=== PATIENT | female | born 1960 | race Caucasian/White ===

== ENCOUNTER 2022-01-29 13:06 | Observation (INO) ==
[2022-01-29] MEDS ORDERED: Aspirin 325 MG TABLET PO ONE (14:22)
[2022-01-29 15:29] LABS: Basophils # 0.1 K/mcL (0.0-0.2); Eosinophils # 0.1 K/mcL (0.0-0.6); Eosinophils % 0.8 %; Hematocrit 37.6 % (35.3-44.9); Immature Granulocytes % 0.3 % (0-4); Lymphocytes # 1.4 K/mcL (0.6-4.6); Lymphocytes % 22.2 %; Mean Corpuscular HGB Conc 31.9 g/dL (31.6-35.5); Mean Corpuscular Hemoglobin 27.1 pg (28.0-33.3); Mean Corpuscular Volume 84.9 fL (83.0-100.0); Mean Platelet Volume 9.1 fL (9.4-12.4); Monocytes # 0.3 K/mcL (0.0-1.3); Monocytes % 5.5 %; Neutrophils # 4.3 K/mcL (1.6-8.9); Platelet Count 289 K/mcL (140-400); Red Blood Count 4.43 M/mcL (3.82-4.97); Red Cell Distribution Width 13.2 % (11.5-14.5); Segmented Neutrophils % 70.2 %; White Blood Count 6.2 K/mcL (4.3-11.1)
[2022-01-29 15:46] LABS: Calcium 9.4 mg/dL (8.6-10.3); Potassium 3.6 mEq/L (3.5-5.1)
[2022-01-29 15:50] LABS: Troponin I 0.11 ng/mL (< 0.04)
[2022-01-29] MEDS ORDERED: *HR* Heparin 5,000 UNIT/ML VIAL IVP ONE (15:57)
[2022-01-29] MEDS ORDERED: *HR* Heparin 5,000 UNIT/ML VIAL IVP PRN ×2 (15:57)
[2022-01-29] MEDS ORDERED: Nitroglycerin 0.4 MG TAB.SUBL SL PRN (16:15)
[2022-01-29] MEDS ORDERED: Ondansetron 4 MG/2 ML VIAL IVP PRN (16:15)
[2022-01-29] MEDS ORDERED: Morphine Sulfate 2 MG/ML SYRINGE IVP PRN (16:15)
[2022-01-29] MEDS ORDERED: Naloxone 0.4 MG/ML INJ IVP PRN (16:15)
[2022-01-29] MEDS: Heparin 25,000UNIT/250ML 1/2NS 25,000 UNIT/250 ML IV.SOLN IVC SCH (17:13)
[2022-01-29 17:22] LABS: Heparin anti-factor XA UFH 0.04 IU/mL (0.30-0.70)
[2022-01-29 17:23] LABS: Prothrombin Time 10.7 Seconds (9.4-12.1)
[2022-01-30 01:50] LABS: Basophils # 0.1 K/mcL (0.0-0.2); Basophils % 0.8 %; Eosinophils # 0.1 K/mcL (0.0-0.6); Eosinophils % 1.8 %; Hematocrit 35.1 % (35.3-44.9); Hemoglobin 11.4 g/dL (11.5-15.4); Immature Granulocytes % 0.3 % (0-4); Lymphocytes # 2.6 K/mcL (0.6-4.6); Mean Corpuscular HGB Conc 32.5 g/dL (31.6-35.5); Mean Corpuscular Hemoglobin 27.6 pg (28.0-33.3); Mean Platelet Volume 9.6 fL (9.4-12.4); Monocytes # 0.5 K/mcL (0.0-1.3); Monocytes % 6.6 %; Neutrophils # 3.9 K/mcL (1.6-8.9); Platelet Count 277 K/mcL (140-400); Red Blood Count 4.13 M/mcL (3.82-4.97); Red Cell Distribution Width 13.4 % (11.5-14.5); Segmented Neutrophils % 54.5 %; White Blood Count 7.1 K/mcL (4.3-11.1)
[2022-01-30 01:59] LABS: Albumin 3.7 g/dL (3.5-5.7); Albumin/Globulin Ratio 1.5 (1.1-2.2); Bilirubin,Total 0.4 mg/dL (0.3-1.0); Calcium 8.7 mg/dL (8.6-10.3); Globulin 2.5 g/dL (2.4-3.5); Magnesium 1.9 mg/dL (1.6-2.6); Potassium 3.5 mEq/L (3.5-5.1); Total Protein 6.2 g/dL (6.4-8.9)
[2022-01-30 02:08] LABS: Heparin anti-factor XA UFH 0.12 IU/mL (0.30-0.70); Prothrombin Time 11.3 Seconds (9.4-12.1)
[2022-01-30] MEDS: Acetaminophen 325 MG TABLET PO SCH ×2 (10:37→17:11)
[2022-01-30] MEDS: Aspirin 81 MG TAB.CHEW PO SCH (10:38)
[2022-01-30] MEDS ORDERED: Acetaminophen 325 MG TABLET PO SCH ×2 (11:00→12:00)
[2022-01-30] MEDS ORDERED: *HR* Heparin 10,000 UNIT/10 ML VIAL ONE (15:15)
[2022-01-30] MEDS ORDERED: 0.9 % Sodium Chloride 1,000 ML ONE (15:15)
[2022-01-30] MEDS ORDERED: Iopamidol - 370 200 ML INFUS..BTL ONE (15:15)
[2022-01-30] MEDS ORDERED: *HR* FentaNYL (PF) 100 MCG/2 ML VIAL ONE (15:15)
[2022-01-30] MEDS ORDERED: Heparin 1,000 UNITS/500 mL 500 ML ONE (15:15)
[2022-01-30] MEDS ORDERED: *HR* Midazolam HCl 2 MG/2 ML VIAL ONE (15:15)
[2022-01-30] MEDS ORDERED: Nitroglycerin 1,000 MCG/5 ML VIAL IV ONE (15:15)
[2022-01-30] MEDS: Heparin 25,000UNIT/250ML 1/2NS 25,000 UNIT/250 ML IV.SOLN IVC SCH (17:17)
[2022-01-31] MEDS: Acetaminophen 325 MG TABLET PO SCH ×2 (00:53→06:14)
[2022-01-31 06:45] VITALS: TEMP 98.2; O2SAT 96
[2022-01-31 08:09] VITALS: BP 114/72; PULSE 61
[2022-01-31] MEDS: Aspirin 81 MG TAB.CHEW PO SCH (08:09)
== END 2022-01-31 10:34 | disposition home or self-care (01) ==
LOC: EMEROOARM 13:06 → 3BNU 13:06 → SUATTDRO 16:15 → 3BNU 17:26
PROVIDERS: ADMIT Hospitalist; ATTEND Hospitalist